=== PATIENT | female | born 1980 | race Caucasian/White ===

== ENCOUNTER 2017-02-12 08:53 | Emergency (ER) | payer SELFPAY ==
[2017-02-12 09:54] LABS: APPEARANCE SLT CLOUDY (CLEAR); BILIRUBIN NEGATIVE (NEGATIVE); COLOR YELLOW (YELLOW); GLUCOSE NEGATIVE (NEGATIVE); KETONE SMALL mg/dL (NEGATIVE); NITRITE NEGATIVE (NEGATIVE); PROTEIN TRACE mg/dL (NEGATIVE); SPECIFIC GRAVITY 1.025 (1.005-1.020); UROBILINOGEN NORMAL (NORMAL)
[2017-02-12 09:55] LABS: BACTERIA MODERATE /hpf (NONE SEEN); EPITHELIAL CELLS OCC /hpf (0-5); MUCUS <1+ /lpf (NONE SEEN); WHITE CELLS - URINE 0-5 /hpf (0-5)
[2017-02-12 09:57] LABS: AMORPHOUS SEDIMENT >1+ /lpf (NONE SEEN)
[2017-02-12 09:58] LABS: CALCIUM OXALATE CRYSTALS RARE /hpf (NONE SEEN)
[2017-02-12 10:05] LABS: BASOPHILS 0.2 % (0-2); EOSINOPHILS 0.6 % (0-7); HEMATOCRIT 40.7 % (36.0-48.0); HEMOGLOBIN 13.4 g/dL (12-16); IMMATURE GRANULOCYTES 0.2 % (0-5); LYMPHOCYTES 10.7 % (15-50); MCH 31.1 pg (26.0-34.0); MCHC 32.9 g/dL (31.0-37.0); MCV 94.4 fL (80.0-100.0); MEAN PLATELET VOLUME 10.8 fL (7.4-10.4); MONOCYTES 5.4 % (2-11); NEUTROPHILS 82.9 % (40-80); PLATELET COUNT 261 10x3/uL (130-400); RBC 4.31 10x6/uL (4.00-5.40); RDW 12.8 % (11.5-14.5); WBC 11.8 10x3/uL (4.8-10.8)
[2017-02-12 10:07] LABS: HCG SERUM NEGATIVE (NEGATIVE)
[2017-02-12 10:14] LABS: ALBUMIN 3.9 g/dL (3.4-5.0); ANION GAP 14.3 mmol/L (8-16); BILIRUBIN - TOTAL 0.39 mg/dL (0.2-1.3); CALCIUM 9.3 mg/dL (8.5-10.1); CARBON DIOXIDE 24.6 mmol/L (21.0-32.0); CREATININE - SERUM 0.9 mg/dL (0.6-1.3); POTASSIUM - SERUM 3.9 mmol/L (3.5-5.1); PROTEIN - SERUM 7.8 g/dL (6.4-8.2)
== END 2017-02-12 12:14 | disposition home or self-care (01) ==
LOC: D.ER 08:53
PROVIDERS: Emergency Medicine
DX: N20.1 Calculus of ureter (principal)